=== PATIENT | female | born 1935 ===

== ENCOUNTER 2016-11-16 23:57 | Inpatient (IN) | payer MEDICARE ==
[2016-11-17] MEDS ORDERED: Ondansetron INJ* 2 MG/ML VIAL IV PRN (01:41)
[2016-11-17] MEDS: Acetaminophen TAB* 325 MG PO PRN ×5 (02:28→22:40)
[2016-11-17] MEDS: NS 0.9% 1000 ML* 1,000 ML IV SCH ×3 (02:28→22:40)
[2016-11-17 05:04] LABS: Hematocrit 39 % (35-47); Hemoglobin 12.9 g/dl (12.0-16.0); Mean Corpuscular HGB Conc 33 g/dl (31-36); Mean Corpuscular Hemoglobin 31 pg (27-31); Mean Corpuscular Volume 93 fL (80-97); Mean Platelet Volume 11 um3 (7.4-10.4); Red Cell Distribution Width 14 % (10.5-15); White Blood Count 9.6 10^3/ul (3.5-10.8)
[2016-11-17 05:10] LABS: Calcium 8.7 mg/dL (8.6-10.3); EGFR African American 88.8 (>60)
--- NOTE | 2016-11-17 07:55 | PN ---
Subjective Date of Service: 11/17/16 Objective Active Medications: Acetaminophen (Tylenol Tab*) 650 mg PO Q4H PRN Amlodipine Besylate (Norvasc Tab*) 5 mg PO BID JAMEE Aspirin (Ecotrin Ec Tab*) 81 mg PO QAM JAMEE Atorvastatin Calcium (Lipitor*) 10 mg PO DAILY JAM[facility] Carvedilol (Coreg Tab*) 12.5 mg PO BID JAMEE Sodium Chloride (Ns 0.9% 1000 Ml*) 1,000 mls @ 100 mls/hr IV PER RATE [facility] Losartan Potassium (Cozaar Tab*) 50 mg PO DAILY [facility] Morphine Sulfate (Morphine Inj (Syringe)*) 2 mg IV Q2H PRN Ondansetron HCl (Zofran Inj*) 4 mg IV Q6H PRN Vital Signs 11/16/16 11/17/16 11/17/16 23:57 00:08 02:58 Temperature 97.6 F 98.1 F Pulse Rate 79 85 Respiratory 14 14 16 Rate Blood Pressure 183/85 182/65 (mmHg) O2 Sat by Pulse 98 97 Oximetry Result Diagrams: 11/17/16 04:49 11/17/16 04:49 Assess/Plan/Problems-Billing Assessment: Ms. Rivas is an 81 yo female with a PMH of HTN and HLD who was admitted on 11/16 after a fall with a right hip fracture. - Patient Problems (1) Hip fracture Comment: - Management per ortho, patient NPO for anticipated surgery today. - Pain meds prn. - Patient is regularly able to obtain more than 4 mets of activity without chest pain or SOB. Her EKG shows a sinus rhythm with no evidence of ischemia. She is at low risk for her anticipated surgery based on the Revised Cardiac Risk Index. No further cardiac testing is indicated. She is medically optimized. (2) Hypertension Comment: - SBP 180s. - Suspect due to pain. - Continue analgesics and carvedilol, losartan and amlodipine. (3) Hyperlipidemia Comment: - Continue atorvastatin. (4) DVT prophylaxis Comment: - SCDs only in the immediate pre-operative procedure. (5) Full code status Status and Disposition: Inpatient. Anticipate need for rehab at time of discharge. PMRU consult placed.
--- NOTE | 2016-11-17 08:15 | RAD ---
HISTORY: CHF COMPARISONS: CT dated September 19, 2016 VIEWS:1: Single frontal portable view of the chest at 5:17 AM. The patient is obliqued to the left. FINDINGS: LINES AND TUBES: None. CARDIOMEDIASTINAL SILHOUETTE: The cardiomediastinal silhouette is normal for portable technique. PLEURA: The costophrenic angles are sharp. No pleural abnormalities are noted. LUNG PARENCHYMA: There is linear opacification of the left lung base that appears to correspond to pleuroparenchymal scarring visible on the previous CT examination. Accounting for differences in technique, this is stable. ABDOMEN: The upper abdomen is clear. There is no subphrenic gas. BONES AND SOFT TISSUES: No bone or soft tissue abnormalities are noted. IMPRESSION: NO ACTIVE CARDIOPULMONARY DISEASE.
[2016-11-17] MEDS: Carvedilol TAB* 25 MG PO SCH ×2 (08:38→20:08)
[2016-11-17] MEDS: Atorvastatin* 10 MG TAB PO SCH (08:39)
[2016-11-17] MEDS: amLODIPine TAB* 5 MG PO SCH ×2 (08:39→20:08)
[2016-11-17] MEDS ORDERED: Losartan TAB* 25 MG PO SCH (09:00)
[2016-11-17] MEDS ORDERED: Aspirin EC TAB* 325 MG PO SCH (09:00)
--- NOTE | 2016-11-17 09:40 | HP ---
CC: Dr. Carey, [facility]; Dr. Villegas, [place] ADMISSION HISTORY AND PHYSICAL: DATE OF ADMISSION: 11/17/16 CHIEF COMPLAINT: Right hip pain. HISTORY OF PRESENT ILLNESS: Ms. Rivas is an 81-year-old woman who was upright in her home this evening when she tripped over her feet and fell forward onto a coffee table. She struck her right hip and bumped her head a little on the right as well. There was no loss of consciousness, and she has no pain in her head at this time. She came to the ER at [facility] by ambulance and was assessed there by Ms. Dewey, nurse practitioner. She was found to have a right hip fracture as well as some pain in the right shoulder. She was unable to bear weight on the right hip. I was contacted to accept the patient in transfer from [facility] Emergency Department. She came to our service by direct admission. At baseline, the patient can climb stairs and get around her home without any shortness of breath or chest pain. She even went to a [employer] race 2 weeks ago, so she has a good performance status. PAST MEDICAL HISTORY: The patient has hypertension, hyperlipidemia. She had 1 episode of congestive heart failure in 2001, but nothing symptomatic since then. She has a history of colon cancer. PAST SURGICAL HISTORY: Colon cancer resection in 2012 with a hemicolectomy and followup with Dr. Tucker. She also had tubal ligation in 1970. MEDICATIONS: On admission are: 1. Amlodipine 5 mg p.o. b.i.d. 2. Aspirin 81 mg p.o. daily. 3. Carvedilol 12.5 mg p.o. b.i.d. 4. Furosemide 20 mg as needed p.r.n. edema. 5. Lovastatin 40 mg p.o. q.h.s. 6. She also takes losartan 1 tab daily, dose unknown. ALLERGIES: None. FAMILY HISTORY: Notable for her father who had diabetes. Father of heart disease in his 70s. Mother had hypertension, in her 70s also. 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 She is . She has 6 children. She never smoked. She drinks alcohol rarely. No recreational drugs. REVIEW OF SYSTEMS: The patient denies any fevers, weight loss, or anorexia. The patient denies any chest pain or palpitations. The patient denies any shortness of breath or cough. Remainder of the 14-point review of systems is negative other than mentioned in the HPI. PHYSICAL EXAMINATION GENERAL: She is in no acute distress. VITAL SIGNS: Temperature is 36.4, pulse 79, respirations 14, blood pressure is 183/85, oxygen saturation is 98%. HEENT: Head is normocephalic, atraumatic. Sclerae anicteric. Pupils are equally round and reactive to light and accommodation. Oropharynx is moist. No lesions. NECK: No JVD, no carotid bruit, no thyromegaly. LUNGS: Clear to auscultation and percussion bilaterally. HEART: Regular rate and rhythm with a 2/6 systolic murmur at the left upper sternal border without radiation. ABDOMEN: Soft, nontender, nondistended. Positive bowel sounds. No hepatosplenomegaly. EXTREMITIES: No peripheral edema. Dorsalis pedis pulses 1+ bilaterally. MUSCULOSKELETAL: The right hip is tender laterally and the right leg is externally rotated. NEUROLOGIC: Cranial nerves II through XII intact. Motor strength is grossly intact throughout. LABORATORY DATA: Sodium 140, potassium 3.7, chloride 105, bicarb 29, BUN 27, creatinine 1.2, glucose 114, calcium 9.0. White count 6.7, hemoglobin 12.8, hematocrit 39.2, and platelets 161. EKG is pending. Chest x-ray is pending. X-rays sent over from [facility] demonstrate right hip intertrochanteric fracture. ASSESSMENT AND PLAN: The patient admitted with mechanical fall and right hip fracture. She will be a good candidate for surgery and Dr. Villegas has been contacted through the emergency department at [facility] to see the patient today in consultation. The patient has a history of hypertension and we will restart her home medications and monitor. There is no unstable coronary syndrome and no unstable congestive heart failure at this time. I would advise to proceed with surgery without delay. She will have an EKG and chest x-ray this morning prior to surgery to complete pre-op evaluation. History of colon cancer. This appears to be in remission and does not affect surgical planning. Code status is full. Her healthcare proxies are her 2 daughters who are coming to see her later this morning. DVT prophylaxis will be with sequential compression devices prior to surgery and with Lovenox and Coumadin after surgery. [id number]/[facility] #: [id number] JANEEN
--- NOTE | 2016-11-17 11:28 | RAD ---
HISTORY: Preop planning, right hip fracture COMPARISONS: None VIEWS: 3, Frontal view of the pelvis with frontal and frog-leg views of the right hip FINDINGS: BONE DENSITY: There is diffuse osteopenia. BONES: There is an angulated intertrochanteric fracture of the right femur . JOINTS: There is mild to moderate osteoarthritis of the hips and SI joints ALIGNMENT: There is no dislocation. SOFT TISSUES: There is peripheral arterial calcification OTHER FINDINGS: Degenerative changes are noted of the spine IMPRESSION: 1. ANGULATED INTERTROCHANTERIC FRACTURE OF THE RIGHT FEMUR. 2. OSTEOPENIA. 3. OSTEOARTHRITIS. 4. PERIPHERAL ARTERIAL DISEASE.
--- NOTE | 2016-11-17 12:00 | CONS ---
ORTHOPEDIC CONSULT: DATE OF ADMISSION: 11/17/16 DATE OF CONSULT: 11/17/16 CHIEF COMPLAINT: Right hip pain. HISTORY OF PRESENT ILLNESS: This is an 81-year-old female who fell at her home early on 11/17/16. She tripped over her own feet and fell forward on to a coffee table striking her right hip and bumping her head. There was no loss of consciousness. She was transported to [facility] Emergency Department by ambulance where x-rays revealed a right hip fracture. The patient was denying any head pain or other signs of concussion. She was transferred to [facility] by direct admission and admitted to the hospitalist service. Dr. Villegas was consulted to evaluate her right hip. PAST MEDICAL HISTORY: 1. Hypertension. 2. Hyperlipidemia. 3. History of 1 episode of congestive heart failure in 2001, but has not had any symptoms since then. 4. History of colon cancer. PAST SURGICAL HISTORY: 1. Colon cancer resection in 2012 with a hemicolectomy. 2. Tubal ligation in 1970. CURRENT MEDICATIONS: 1. Amlodipine 5 mg p.o. b.i.d. 2. Aspirin 81 mg p.o. daily. 3. Carvedilol 12.5 mg p.o. b.i.d. 4. Furosemide 20 mg p.r.n. edema. 5. Lovastatin 40 mg q.h.s. 6. Losartan 1 tab daily, dosage unknown. ALLERGIES: No known drug allergies. FAMILY HISTORY: Diabetes, heart disease, and hypertension. SOCIAL HISTORY: The patient is retired. She has no history of tobacco use and no recreational drug use. She does drink alcohol or rare occasion. REVIEW OF SYSTEMS: General: The patient denies fevers, chills, or weight loss. Cephalic: The patient denies headache or dizziness. Respiratory: The patient denies shortness of breath or chronic cough. The remainder of the 14- point system is negative other than mentioned in the above HPI. PHYSICAL EXAM: General: Alert and oriented, no obvious distress. Vital Signs : Temperature 98.1 Fahrenheit/36.4 celsius, pulse rate 85, respiratory rate 16, blood pressure 182/65, and O2 sat is 97%. HEENT: Normocephalic, atraumatic. Pupils are equal, round, and reactive to light and accommodation. Extraocular movements are intact. Neck: Supple. No palpable lymph nodes. Throat is clear. Lungs: Clear to auscultation bilaterally. No wheezes, rales, or rhonchi. Heart: Regular, rate, and rhythm; S1, S2. There is a murmur noted with auscultation. Abdomen: Positive bowel sounds, soft and nontender. Extremities: No peripheral edema. Distal neurovascular status is intact. Musculoskeletal: On exam of the right hip there is no visible deformity, no ecchymosis. There is mild swelling visible and the right hip is tender laterally with the right leg externally rotated slightly. Neurologic: Cranial nerves II through XII are intact. The patient is alert and oriented x3. DIAGNOSTIC STUDIES/LAB DATA: Sodium 140, potassium 3.7, chloride 105, bicarb 29 , BUN 27, creatinine 1.2, glucose 114, calcium 9.0, white count 6.7, hemoglobin 12.8, hematocrit 39.2, and platelets 161. Initial x-rays from [facility] of the right hip showed displaced intertrochanteric fracture of the right hip. IMPRESSION: Right hip displaced intertrochanteric fracture. PLAN/RECOMMENDATIONS: This patient is scheduled to undergo an ORIF right hip by Dr. Villegas. She has been cleared by Cardiology to proceed with surgery. DREAD SOTO [id number]/[facility] #: [id number] MTDD
[2016-11-17 14:28] LABS: Urine Bacteria Absent (Absent); Urine Bilirubin Negative (Negative); Urine Glucose Negative (Negative); Urine Nitrite Negative (Negative)
[2016-11-17] MEDS: Morphine INJ* 2 MG/ML 1 ML SYRINGE IV PRN (14:41)
[2016-11-17] MEDS ORDERED: Buffered Lidocaine 0.9% SYRIN* 5 ML/SYR SYRINGE INTRADERM ONE (19:32)
[2016-11-18] MEDS: amLODIPine TAB* 5 MG PO SCH ×2 (07:31→21:03)
[2016-11-18] MEDS: Carvedilol TAB* 25 MG PO SCH ×2 (07:31→21:03)
[2016-11-18] MEDS: Atorvastatin* 10 MG TAB PO SCH (07:32)
[2016-11-18] MEDS: Morphine INJ* 2 MG/ML 1 ML SYRINGE IV PRN (07:32)
--- NOTE | 2016-11-18 07:48 | PN ---
Subjective Date of Service: 11/18/16 Interval History: Ms. Gonzalez denies right hip pain at the time of my examination and states that she is feeling well. She further denies chest pain, SOB, nausea, or abdominal pain. She is tolerating sips of coffee thus far. Objective Active Medications: Acetaminophen (Tylenol Tab*) 650 mg PO Q4H PRN Amlodipine Besylate (Norvasc Tab*) 5 mg PO BID JAMEE Atorvastatin Calcium (Lipitor*) 10 mg PO DAILY J[facility] Carvedilol (Coreg Tab*) 12.5 mg PO BID JAMEE Sodium Chloride (Ns 0.9% 1000 Ml*) 1,000 mls @ 100 mls/hr IV PER RATE J[facility] Lactated Ringer's (Lactated Ringers 1000 Ml Bag*) 1,000 mls @ 125 mls/hr IV PER RATE [facility] Morphine Sulfate (Morphine Inj (Syringe)*) 2 mg IV Q2H PRN Ondansetron HCl (Zofran Inj*) 4 mg IV Q6H PRN Vital Signs 11/17/16 11/17/16 11/17/16 07:57 08:10 11:38 Temperature 98.0 F 97.8 F Pulse Rate 77 76 Respiratory 13 11 Rate Blood Pressure 162/67 135/55 (mmHg) O2 Sat by Pulse 89 93 87 Oximetry 11/17/16 11/17/16 11/17/16 12:45 14:41 15:41 Temperature Pulse Rate 73 Respiratory 16 15 Rate Blood Pressure (mmHg) O2 Sat by Pulse 96 Oximetry 11/17/16 11/17/16 11/17/16 15:49 20:00 20:19 Temperature 99.0 F 99.0 F Pulse Rate 67 52 Respiratory 15 16 17 Rate Blood Pressure 152/56 154/67 (mmHg) O2 Sat by Pulse 96 96 Oximetry 11/17/16 11/18/16 11/18/16 23:26 03:47 07:32 Temperature 97.8 F 98.1 F Pulse Rate 74 61 Respiratory 14 16 18 Rate Blood Pressure 144/51 150/54 (mmHg) O2 Sat by Pulse 97 94 Oximetry 11/18/16 07:39 Temperature 100.7 F Pulse Rate 82 Respiratory 16 Rate Blood Pressure 167/75 (mmHg) O2 Sat by Pulse 94 Oximetry Oxygen Devices in Use Now: None Appearance: Female lying in bed in NAD Eyes: No Scleral Icterus Ears/Nose/Mouth/Throat: Mucous Membranes Moist Neck: Trachea Midline Respiratory: Symmetrical Chest Expansion and Respiratory Effort, Clear to Auscultation Cardiovascular: NL Sounds; No Murmurs; No JVD, No Edema Abdominal: NL Sounds; No Tenderness; No Distention Lymphatic: No Cervical Adenopathy Extremities: No Edema Skin: No Rash or Ulcers Neurological: Alert and Oriented x 3, NL Muscle Strength and Tone Nutrition: Taking PO's Result Diagrams: 11/17/16 04:49 11/17/16 04:49 Assess/Plan/Problems-Billing Assessment: Ms. Rivas is an 81 yo female with a PMH of HTN and HLD who was admitted on 11/16 after a fall with a right hip fracture. - Patient Problems (1) Hip fracture Comment: - POD # 0, Management per ortho. - Pain meds prn. - Monitor H/H. - PT/OT. (2) Hypertension Comment: - SBP 150-160s - Continue carvedilol, losartan and amlodipine. (3) Hyperlipidemia Comment: - Continue atorvastatin. (4) DVT prophylaxis Comment: - Lovenox per ortho. (5) Full code status Status and Disposition: Inpatient. Anticipate need for rehab at time of discharge. PMRU consult placed.
--- NOTE | 2016-11-18 07:49 | PN ---
Progress Note - Progress Note Date of Service: 11/18/16 SOAP: Subjective: Right hip pain. No headache. Patient had a mild headache yesterday, resolved with coffee. Optimized/cleared by Hospitalist service. Objective: NAD RLE: - short - externally rotated - NVID Selected Entries 11/18/16 07:39 Temperature 100.7 F Pulse Rate 82 Respiratory 16 Rate Blood Pressure 167/75 (mmHg) O2 Sat by Pulse 94 Oximetry Laboratory Tests 11/17/16 11/17/16 04:49 13:10 WBC 9.6 Hct 39 Plt Count 136 L Urine Nitrate Negative Ur Leukocyte Esterase Negative Urine WBC (Auto) Trace(0-5/hpf) Urine Bacteria Absent Assessment: R hip intertrochanteric fracture Plan: - to OR for ORIF c IMN - NPO, consented
[2016-11-18] MEDS ORDERED: ceFAZolin 2 GM PREMIX (*) 50 ML IVPB ONE (07:56)
[2016-11-18] MEDS ORDERED: Bupivacaine 0.5% W/EPI SDV* 30 ML VIAL ONE (08:11)
[2016-11-18] MEDS ORDERED: fentaNYL* 50 MCG/ML 2 ML VIAL (100 MCG VIAL) ONE (08:37)
[2016-11-18] MEDS ORDERED: Midazolam* 1 MG/ML 5 ML VIAL (5 MG) ONE (08:37)
[2016-11-18] MEDS ORDERED: Morphine PF AMP (0.5MG/ML)* 5 MG/10 ML AMP ONE (08:38)
[2016-11-18] MEDS ORDERED: Ondansetron INJ* 2 MG/ML VIAL IV PRN (09:42)
[2016-11-18] MEDS ORDERED: Naloxone* 0.4 MG/ML 1 ML VIAL IV PRN (09:42)
[2016-11-18] MEDS ORDERED: DiMENhydriNATE IV* 50 MG/ML VIAL IV PUSH PRN (09:42)
[2016-11-18] MEDS ORDERED: Nalbuphine* 20 MG/ML 1 ML VIAL IV PRN (09:42)
[2016-11-18] MEDS ORDERED: fentaNYL* 50 MCG/ML 2 ML VIAL (100 MCG VIAL) IV PRN (09:45)
--- NOTE | 2016-11-18 11:05 | RAD ---
INDICATION: Right hip fracture COMPARISON: November 17, 2016 FINDINGS: 2.7 minutes of fluoroscopy were provided for the orthopedics department. Fluoroscopic spot imaging of the right hip were obtained for operative control and show right femoral nailing . CPT II Codes: 6045F (fluoro time doc)
--- NOTE | 2016-11-18 14:18 | PN ---
Subjective Date of Service: 11/18/16 Interval History: Ms. Rivas denies right hip pain at the time of my examination and states that she is feeling well. She denies chest pain, SOB, nausea, or abdominal pain. She is tolerating sips of cough. Objective Active Medications: Acetaminophen (Tylenol Tab*) 650 mg PO Q4H PRN PRN Reason: FEVER/HEADACHE Last Admin: 11/17/16 22:40 Dose: 650 mg Amlodipine Besylate (Norvasc Tab*) 5 mg PO BID [facility] Last Admin: 11/18/16 07:31 Dose: 5 mg Atorvastatin Calcium (Lipitor*) 10 mg PO DAILY [facility] PRN Reason: Protocol Last Admin: 11/18/16 07:32 Dose: 10 mg Carvedilol (Coreg Tab*) 12.5 mg PO BID [facility] Last Admin: 11/18/16 07:31 Dose: 12.5 mg Dimenhydrinate (Dramamine Iv*) 25 mg IV PUSH Q6H PRN PRN Reason: Nausea/Vomiting Stop: 11/19/16 01:00 Enoxaparin Sodium (Lovenox(*)) 40 mg SUBCUT DAILY [facility] Sodium Chloride (Ns 0.9% 1000 Ml*) 1,000 mls @ 100 mls/hr IV PER RATE [facility] Last Admin: 11/17/16 22:40 Dose: 100 mls/hr Lactated Ringer's (Lactated Ringers 1000 Ml Bag*) 1,000 mls @ 125 mls/hr IV PER RATE [facility] Last Admin: 11/18/16 13:27 Dose: 125 mls/hr Cefazolin Sodium 1 gm/ Sodium (Chloride) 50 mls @ 200 mls/hr IVPB Q8H [facility] Stop: 11/19/16 08:14 Morphine Sulfate (Morphine Inj (Syringe)*) 2 mg IV Q3H PRN PRN Reason: PAIN Nalbuphine HCl (Nubain*) 5 mg IV Q6H PRN PRN Reason: pruritis Stop: 11/19/16 01:00 Naloxone HCl (Narcan*) 0.08 mg IV Q2M PRN PRN Reason: respiratory depression Stop: 11/19/16 01:00 Ondansetron HCl (Zofran Inj*) 4 mg IV Q6H PRN PRN Reason: NAUSEA Ondansetron HCl (Zofran Inj*) 4 mg IV Q6H PRN PRN Reason: Nausea/Vomiting Stop: 11/19/16 01:00 Oxycodone/Acetaminophen (Percocet 5/325 Tab*) 1 tab PO Q4H PRN PRN Reason: PAIN Oxycodone/Acetaminophen (Percocet 5/325 Tab*) 2 tab PO Q4H PRN PRN Reason: PAIN Vital Signs 11/17/16 11/17/16 11/17/16 14:41 15:41 15:49 Temperature 99.0 F Pulse Rate 67 Respiratory 16 15 15 Rate Blood Pressure 152/56 (mmHg) O2 Sat by Pulse 96 Oximetry 11/17/16 11/17/16 11/17/16 20:00 20:19 23:26 Temperature 99.0 F 97.8 F Pulse Rate 52 74 Respiratory 16 17 14 Rate Blood Pressure 154/67 144/51 (mmHg) O2 Sat by Pulse 96 97 Oximetry 11/18/16 11/18/16 11/18/16 03:47 07:32 07:39 Temperature 98.1 F 100.7 F Pulse Rate 61 82 Respiratory 16 18 16 Rate Blood Pressure 150/54 167/75 (mmHg) O2 Sat by Pulse 94 94 Oximetry 11/18/16 11/18/16 11/18/16 10:36 10:40 10:45 Temperature 97.9 F Pulse Rate 63 60 56 Respiratory 16 20 20 Rate Blood Pressure 129/73 130/43 134/40 (mmHg) O2 Sat by Pulse 94 94 99 Oximetry 11/18/16 11/18/16 11/18/16 11:00 11:15 11:30 Temperature 96.8 F Pulse Rate 61 60 54 Respiratory 16 24 18 Rate Blood Pressure 110/43 104/43 117/45 (mmHg) O2 Sat by Pulse 99 97 98 Oximetry 11/18/16 11/18/16 11/18/16 11:45 12:00 12:15 Temperature 98.1 F Pulse Rate 54 64 54 Respiratory 22 22 20 Rate Blood Pressure 97/40 128/47 122/46 (mmHg) O2 Sat by Pulse 98 98 97 Oximetry 11/18/16 11/18/16 12:47 13:52 Temperature 98.1 F 97.3 F Pulse Rate 66 Respiratory 16 14 Rate Blood Pressure 133/45 (mmHg) O2 Sat by Pulse 98 Oximetry Result Diagrams: 11/17/16 04:49 11/17/16 04:49 Assess/Plan/Problems-Billing Assessment: Ms. Rivas is an 81 yo female with a PMH of HTN and HLD who was admitted on 11/16 after a fall with a right hip fracture. - Patient Problems (1) Hip fracture Comment: - Management per ortho, surgery planned for today. - Pain meds prn. - Patient is regularly able to obtain more than 4 METS of activity without chest pain or SOB. Her EKG shows a SR with no evidence of ischemia. She is at low risk for her anticipated surgery based on the Revised Cardiac Risk Index. No further cardiac testing is indicated. She is medically optimized. (2) Hypertension Comment: - SBP 150-160s - Continue carvedilol, losartan and amlodipine. (3) Hyperlipidemia Comment: - Continue atorvastatin. (4) DVT prophylaxis Comment: - SCDs only in the immediate pre-operative procedure. (5) Full code status Status and Disposition: Inpatient. Anticipate need for rehab at time of discharge. PMRU consult placed.
[2016-11-18] MEDS: ceFAZolin 1 GM* Q8H x 3 doses IVPB SCH ×2 (18:24)
[2016-11-19] MEDS: ceFAZolin 1 GM* Q8H x 3 doses IVPB SCH ×4 (00:20→07:41)
[2016-11-19] MEDS ORDERED: Morphine INJ* 2 MG/ML 1 ML SYRINGE IV PRN (03:00)
--- NOTE | 2016-11-19 03:10 | OP ---
DATE OF OPERATION: 11/18/16 - ROOM #350 DATE OF : 37 SURGEON: Kane Villegas MD SOFT SUGAR SUPERVISOR: DREAD Brambila. A physician mail handler assistant was required throughout the length of the case for positioning and retraction. ANESTHESIOLOGIST: Lalito Bourne MD ANESTHESIA: Spinal anesthesia, Duramorph. PRE-OP DIAGNOSIS: Right hip intertrochanteric fracture, displaced. POST-OP DIAGNOSIS: Right hip intertrochanteric fracture, displaced. OPERATIVE PROCEDURE: Right hip open reduction internal fixation, intertrochanteric hip fracture, displaced. ANTIBIOSIS: 2 g Ancef IV. IV FLUIDS: 950 cc crystalloid. COMPLICATIONS: None. ESTIMATED BLOOD LOSS: 200 cc. SPECIMEN: None. IMPLANTS: [place] gamma nail, short nail, 11 mm x 180 mm at 125 degrees. Lag screw was 10.5 mm x 100 mm in length. Locking screw was 5 mm x 32.5 mm in length. INDICATIONS FOR PROCEDURE: The patient is an 81-year-old woman who sustained a mechanical fall at home on 11/17/16, one day prior to surgery. She tripped over her own feet. One foot stepped on the other. She then fell forward, striking her right hip against the floor, and she said, possibly grazing the right side of her head against the table. No loss of consciousness. The patient was taken to the [facility] Emergency Department by ambulance where x-rays demonstrated a right hip fracture. As the patient denied any head pain or any other signs of concussion, a CT scan was not performed of the head. The patient was transferred to [facility] by direct admission to the hospitalist service there and I was consulted by telephone from the [facility] Emergency Department. The patient lives next door to a son. The patient has 6 children, most of whom live locally. Evaluation of imaging demonstrated an intertrochanteric right hip fracture, very close to the base of the femoral neck. Films from [facility] demonstrated split through the lesser trochanter, although films at [facility] do not demonstrate that as well. Discussed with Radiology as well just to confirm the intertrochanteric nature of the fracture. I spoke with the patient and her family, including many of her children, about operative treatment of displaced intertrochanteric hip fractures. I moraima a diagram of the injury and intramedullary nail fixation for treatment. I reviewed benefits, risks, and potential complications, benefits being reduced pain, decreased time until functional ambulation, improved likelihood of functional ambulation, fewer medical comorbidities from remaining in bed. Risks and complications including bleeding, infection, nerve and blood vessel injury, hardware cutout, hip pain, were discussed. Need for anticoagulation was discussed. DESCRIPTION OF PROCEDURE: A preoperative written consent was obtained. In the patient's floor room, the patient's operative extremity was marked by myself. The patient consented herself, but her children also listened to the discussion of benefits, risks, and potential complications. The patient was taken to the operating room and a spinal anesthetic was placed by Dr. Bourne. The patient was next positioned on the fracture table supine. The fracture table was fully assembled with perineal post and the right lower extremity in the traction position. Contralateral left hip was flexed and externally rotated. A mini time-out was performed and C-arm imaging was brought in. Traction and small amount of internal rotation to the right lower extremity obtained adequate reduction of a fracture that preoperatively had been significantly shortened at the fracture site. I noticed on the lateral images that there may have been a split in the femoral neck itself. While some of the femoral neck appeared not to be angulated, there appeared to be some of the femoral neck that was interangulated. I manipulated the lower extremity in an attempt to improve this. I tried various lateral x-ray angles to obtain the best shot from shaft to neck to head with best alignment. I rotated the lower extremity as well to improve the alignment. I obtained a fracture alignment that I was happy with and I decided on 10 degrees from the level of pure horizontal as my lateral imaging angle for the case. The patient's right hip was prepped and draped. Surgical time-out was performed. A stab incision with a 10 blade was made 8 cm proximal to the proximal most tip of the greater trochanter in line with the shaft of the femur. Through the stab hole in the skin, I introduced a pin. I placed this pin into the proximal most tip of the greater trochanter, pointing down the femoral shaft. This pin was in excellent position in both the AP and lateral planes. I, therefore, next extended my incision distally, part of the way towards the level of the greater trochanter. I also incised the abductor fascia along that pin that had been left in place. I could then palpate nicely the greater trochanter through this wound, which was more proximal to it. I briefly considered placing a pin more anterior, though when I did this, the pin was too anterior and so I stayed with my original pin. I placed a starting reamer and a tissue protector over the pin and I reamed the proximal femur. I then placed a nail, dimensions noted above. With the guide attached to the nail, I then placed a stab incision for the triple cannula for the lag screw. I split the iliotibial band and vastus to get down to proximal femur. I then placed a pin with the pin tip close to the center-center location of the femoral head subchondrally. I adjusted this pin once to obtain good position in both the coronal and sagittal planes. I then drilled over this pin and placed a screw 100 mm in length. I made it long enough so that this would definitely extend lateral to the lateral cortex for full locking control. I then obtained some light compression with the lag screw, as this seemed to improve the reduction slightly in both the AP and lateral planes. I then placed a distal locking screw, first drilling through a guide and then placing a screw, 32.5 mm in length that was bicortical. I then placed a set countersinker balance screw hole the nail from superior. I clearly engaged the lag screw. Guide was removed. Final x-rays, AP and lateral images of the entirety of the nail and 2 screws demonstrated good position of hardware. The reduction was adequate, although it appears in the AP view that there is a slight amount of diastasis about the compression side, medial side of the fracture, this lag screw was slightly compressed, so I do not believe that there was in fact any diastasis in that location. Irrigation. Closure of the hip abductor fascia was performed with 3 figure-of- eight stitches using Vicryl 0 suture. Closure of the subcutaneous tissues was performed with buried simple stitches using Vicryl 2.0 suture. Closure of the skin was with gustavo. It should be noted that prior to the placement of the lag screw, I placed a derotational pin, more superiorly in the femoral head and neck. I did this secondary to the location of this intertrochanteric fracture very close to the base of the femoral neck. Therefore, I was concerned about rotational malreduction with passage of my lag screw. In order to place anti-rotational pin, I placed a stab skin incision, just anterior and proximal to the skin incision for my lag screw. I placed a pin parallel with the track of the lag screw, but more proximal and anterior. I placed a pin into the head and neck of the femur. I kept that in place while I placed my lag screw. I removed it as soon as the lag screw had been placed. When the incisions x4 were closed with gustavo, the skin was then cleaned. Xeroform, 4x4's, ABD's, foam tape. The patient was returned to the supine position and transferred to a stretcher for return to PACU. DISPOSITION: The patient will be readmitted to the hospitalist service. Anesthesia requested that we wait 16 hours to start narcotics. The Duramorph should last approximately that long. The patient will be anticoagulated with Lovenox 40 mg subcu daily x4 weeks, starting postoperative day #1 in the morning. The patient would do physical therapy and will be weightbearing as tolerated. The patient should follow up with me in clinic approximately 14 days postoperative for x-rays and removal of her gustavo. The patient's family has my cell phone number should they have any questions or problems. [id number]/[facility] #: [id number] MTDD
[2016-11-19] MEDS: oxyCODONE/Acetamin 5/325 MG* TAB PO PRN ×4 (05:50→19:17)
[2016-11-19] MEDS: Carvedilol TAB* 25 MG PO SCH ×2 (07:43→21:18)
[2016-11-19] MEDS: Atorvastatin* 10 MG TAB PO SCH (07:44)
[2016-11-19] MEDS: Enoxaparin(*) 40 MG/0.4 ML SYR SUBCUT SCH (07:44)
[2016-11-19] MEDS: amLODIPine TAB* 5 MG PO SCH ×2 (07:44→21:18)
--- NOTE | 2016-11-19 10:33 | PN ---
Subjective Date of Service: 11/19/16 Interval History: Ms. Rivas is feeling well today and has no complaints. She had some pain with therapy today but is pain free now. She denies chest pain, SOB, nausea, or abdominal pain. Objective Active Medications: Acetaminophen (Tylenol Tab*) 650 mg PO Q4H PRN Amlodipine Besylate (Norvasc Tab*) 5 mg PO BID [facility] Atorvastatin Calcium (Lipitor*) 10 mg PO DAILY [facility] Carvedilol (Coreg Tab*) 12.5 mg PO BID [facility] Enoxaparin Sodium (Lovenox(*)) 40 mg SUBCUT DAILY [facility] Sodium Chloride (Ns 0.9% 1000 Ml*) 1,000 mls @ 100 mls/hr IV PER RATE [facility] Lactated Ringer's (Lactated Ringers 1000 Ml Bag*) 1,000 mls @ 125 mls/hr IV PER RATE [facility] Morphine Sulfate (Morphine Inj (Syringe)*) 2 mg IV Q3H PRN Ondansetron HCl (Zofran Inj*) 4 mg IV Q6H PRN Oxycodone/Acetaminophen (Percocet 5/325 Tab*) 1 tab PO Q4H PRN Oxycodone/Acetaminophen (Percocet 5/325 Tab*) 2 tab PO Q4H PRN Vital Signs 11/18/16 11/18/16 11/18/16 10:36 10:40 10:45 Temperature 97.9 F Pulse Rate 63 60 56 Respiratory 16 20 20 Rate Blood Pressure 129/73 130/43 134/40 (mmHg) O2 Sat by Pulse 94 94 99 Oximetry 11/18/16 11/18/16 11/18/16 11:00 11:15 11:30 Temperature 96.8 F Pulse Rate 61 60 54 Respiratory 16 24 18 Rate Blood Pressure 110/43 104/43 117/45 (mmHg) O2 Sat by Pulse 99 97 98 Oximetry 11/18/16 11/18/16 11/18/16 11:45 12:00 12:15 Temperature 98.1 F Pulse Rate 54 64 54 Respiratory 22 22 20 Rate Blood Pressure 97/40 128/47 122/46 (mmHg) O2 Sat by Pulse 98 98 97 Oximetry 11/18/16 11/18/16 11/18/16 12:47 13:30 13:42 Temperature 98.1 F Pulse Rate 66 64 Respiratory 16 14 Rate Blood Pressure 133/45 142/60 (mmHg) O2 Sat by Pulse 98 97 Oximetry 11/18/16 11/18/16 11/18/16 13:52 14:45 16:46 Temperature 97.3 F 98.4 F 97.6 F Pulse Rate 68 69 Respiratory 14 10 15 Rate Blood Pressure 108/63 152/63 (mmHg) O2 Sat by Pulse 96 96 Oximetry 11/18/16 11/18/16 11/18/16 16:47 18:40 19:05 Temperature 97.6 F Pulse Rate 75 Respiratory 16 18 Rate Blood Pressure 145/54 (mmHg) O2 Sat by Pulse 96 99 99 Oximetry 11/18/16 11/18/16 11/18/16 20:00 20:23 22:37 Temperature Pulse Rate Respiratory 18 18 Rate Blood Pressure (mmHg) O2 Sat by Pulse 99 Oximetry 11/18/16 11/18/16 11/19/16 23:14 23:33 03:48 Temperature 98.7 F 98.5 F Pulse Rate 80 85 Respiratory 18 16 18 Rate Blood Pressure 114/42 124/51 (mmHg) O2 Sat by Pulse 99 98 Oximetry 11/19/16 11/19/16 11/19/16 05:50 07:09 07:50 Temperature 98.7 F Pulse Rate 80 Respiratory 16 16 16 Rate Blood Pressure 123/46 (mmHg) O2 Sat by Pulse 94 Oximetry Oxygen Devices in Use Now: None Appearance: Female lying in bed in NAD Eyes: No Scleral Icterus Ears/Nose/Mouth/Throat: Mucous Membranes Moist Neck: Trachea Midline Respiratory: Symmetrical Chest Expansion and Respiratory Effort, Clear to Auscultation Cardiovascular: NL Sounds; No Murmurs; No JVD, No Edema Abdominal: NL Sounds; No Tenderness; No Distention Lymphatic: No Cervical Adenopathy Extremities: No Edema Skin: No Rash or Ulcers Neurological: Alert and Oriented x 3, NL Muscle Strength and Tone Nutrition: Taking PO's Result Diagrams: 11/17/16 04:49 11/17/16 04:49 Assess/Plan/Problems-Billing Assessment: Ms. Rivas is an 81 yo female with a PMH of HTN and HLD who was admitted on 11/16 after a fall with a right hip fracture. - Patient Problems (1) Hip fracture Comment: - POD # 1, Management per ortho. - Pain meds prn. - Monitor H/H. - PT/OT. (2) Hypertension Comment: - SBP 150-160s - Continue carvedilol and amlodipine. (3) Hyperlipidemia Comment: - Continue atorvastatin. (4) DVT prophylaxis Comment: - Lovenox per ortho. (5) Full code status Status and Disposition: Inpatient. Anticipate need for rehab at time of discharge. PMRU consult placed. Patient is stable and progressing well with therapy. Hospital Medicine will sign off for now but please do not hesitate to call with any further questions or concerns.
[2016-11-19 10:43] LABS: Hematocrit 34 % (35-47); Hemoglobin 10.8 g/dl (12.0-16.0)
--- NOTE | 2016-11-19 13:13 | PN ---
Progress Note - Progress Note Date of Service: 11/19/16 SOAP: Subjective: POD #1 Right hip ORIF with gamma nail. States that she is having some pain today but controlled with meds. Denies CP/SOB, calf pain, f/c. Objective: Vitals: Temp Pulse Resp BP Pulse Ox 97.9 F 73 16 112/68 92 11/19/16 11:48 11/19/16 11:48 11/19/16 12:38 11/19/16 11:48 11/19/16 11:48 Gen: A&Ox3, NAD at rest sitting in chair Right Hip: Dressing C/D/I, thigh soft, NT. +f/e at knee, ankle and MTPs. N/V intact Labs: Laboratory Results - last 24 hr 11/19/16 10:33 Hgb 10.8 L Hct 34 L Assessment: POD #1 Right hip ORIF Plan: PT/OT cont WBAT PMRU referral per medicine Lovenox for DVT ppx
[2016-11-20] MEDS: oxyCODONE/Acetamin 5/325 MG* TAB PO PRN ×5 (04:42→23:51)
[2016-11-20 06:28] LABS: Hematocrit 30 % (35-47); Hemoglobin 9.8 g/dl (12.0-16.0)
--- NOTE | 2016-11-20 08:57 | PN ---
Progress Note - Progress Note Date of Service: 11/20/16 SOAP: Subjective: Pt. OOB to chair, pain in right hip minimal and controlled well with PO medications Objective: Vital Signs Temp Pulse Resp BP Pulse Ox 97.7 F 76 14 138/49 98 11/20/16 03:51 11/20/16 03:51 11/20/16 06:28 11/20/16 03:51 11/20/16 04:10 Laboratory Last Values WBC 9.6 10^3/ul (3.5-10.8) 11/17/16 04:49 RBC 4.20 10^6/ul (4.0-5.4) 11/17/16 04:49 Hgb 9.8 g/dl (12.0-16.0) L 11/20/16 06:18 Hct 30 % (35-47) L 11/20/16 06:18 MCV 93 fL (80-97) 11/17/16 04:49 MCH 31 pg (27-31) 11/17/16 04:49 MCHC 33 g/dl (31-36) 11/17/16 04:49 RDW 14 % (10.5-15) 11/17/16 04:49 Plt Count 136 10^3/ul (150-450) L 11/17/16 04:49 MPV 11 um3 (7.4-10.4) H 11/17/16 04:49 Neut % (Auto) 75.1 % (38-83) 11/17/16 04:49 Lymph % (Auto) 12.1 % (25-47) L 11/17/16 04:49 [place] % (Auto) 10.6 % (1-9) H 11/17/16 04:49 Eos % (Auto) 0.6 % (0-6) 11/17/16 04:49 Baso % (Auto) 1.6 % (0-2) 11/17/16 04:49 Absolute Neuts (auto) 7.2 10^3/ul (1.5-7.7) 11/17/16 04:49 Absolute Lymphs (auto) 1.2 10^3/ul (1.0-4.8) 11/17/16 04:49 Absolute Monos (auto) 1.0 10^3/ul (0-0.8) H 11/17/16 04:49 Absolute Eos (auto) 0.1 10^3/ul (0-0.6) 11/17/16 04:49 Absolute Basos (auto) 0.2 10^3/ul (0-0.2) 11/17/16 04:49 Absolute Nucleated RBC 0 10^3/ul 11/17/16 04:49 Nucleated RBC % 0 11/17/16 04:49 INR (Anticoag Therapy) 0.94 (0.89-1.11) 11/17/16 04:48 APTT 30.1 seconds (26.0-36.3) 11/17/16 11:35 Sodium 136 mmol/L (133-145) 11/17/16 04:49 Potassium 4.0 mmol/L (3.5-5.0) 11/17/16 04:49 Chloride 105 mmol/L (101-111) 11/17/16 04:49 Carbon Dioxide 26 mmol/L (22-32) 11/17/16 04:49 Anion Gap 5 mmol/L (2-11) 11/17/16 04:49 BUN 20 mg/dL (6-24) 11/17/16 04:49 Creatinine 0.80 mg/dL (0.51-0.95) 11/17/16 04:49 Est GFR ( Amer) 88.8 (>60) 11/17/16 04:49 Est GFR (Non-Af Amer) 69.0 (>60) 11/17/16 04:49 BUN/Creatinine Ratio 25.0 (8-20) H 11/17/16 04:49 Glucose 141 mg/dL (70-100) H 11/17/16 04:49 Calcium 8.7 mg/dL (8.6-10.3) 11/17/16 04:49 Urine Color Yellow 11/17/16 13:10 Urine Appearance Clear 11/17/16 13:10 Urine pH 5.0 (5-9) 11/17/16 13:10 Ur Specific [place] 1.014 (1.010-1.030) 11/17/16 13:10 Urine Protein Negative (Negative) 11/17/16 13:10 Urine Ketones Negative (Negative) 11/17/16 13:10 Urine Blood 1+ (Negative) H 11/17/16 13:10 Urine Nitrate Negative (Negative) 11/17/16 13:10 Urine Bilirubin Negative (Negative) 11/17/16 13:10 Urine Urobilinogen Negative (Negative) 11/17/16 13:10 Ur Leukocyte Esterase Negative (Negative) 11/17/16 13:10 Urine WBC (Auto) Trace(0-5/hpf) (Absent) 11/17/16 13:10 Urine RBC (Auto) 3+(>10/hpf) (Absent) H 11/17/16 13:10 Urine Bacteria Absent (Absent) 11/17/16 13:10 Urine Glucose Negative (Negative) 11/17/16 13:10 Blood Type O Positive 11/17/16 04:48 Antibody Screen Negative 11/17/16 04:48 incision: c/d; dressing changed PE: NVI Assessment: S/P right hip IT fracture ORIF; POD #2 Plan: 1) Continue PT/OT- WBAT 2) Lovenox/SCD's for DVT prophylaxis 3) awaiting inpatient rehab placement
[2016-11-20] MEDS: Enoxaparin(*) 40 MG/0.4 ML SYR SUBCUT SCH (09:36)
[2016-11-20] MEDS: Atorvastatin* 10 MG TAB PO SCH (09:36)
[2016-11-20] MEDS: amLODIPine TAB* 5 MG PO SCH ×2 (09:38→21:28)
[2016-11-20] MEDS: Carvedilol TAB* 25 MG PO SCH ×2 (09:38→21:28)
--- NOTE | 2016-11-20 11:23 | PN ---
Subjective Date of Service: 11/20/16 Interval History: Ms. Rivas denies any complaint today. She reports her hip pain is well controlled and that she has been up and ambulated to the bathroom. She specifically denies chest pain, SOB, nausea, or abdominal pain. Objective Active Medications: Acetaminophen (Tylenol Tab*) 650 mg PO Q4H PRN Amlodipine Besylate (Norvasc Tab*) 5 mg PO BID [facility] Atorvastatin Calcium (Lipitor*) 10 mg PO DAILY [facility] Carvedilol (Coreg Tab*) 12.5 mg PO BID [facility] Enoxaparin Sodium (Lovenox(*)) 40 mg SUBCUT DAILY [facility] Lactated Ringer's (Lactated Ringers 1000 Ml Bag*) 1,000 mls @ 125 mls/hr IV PER RATE [facility] Morphine Sulfate (Morphine Inj (Syringe)*) 2 mg IV Q3H PRN Ondansetron HCl (Zofran Inj*) 4 mg IV Q6H PRN Oxycodone/Acetaminophen (Percocet 5/325 Tab*) 1 tab PO Q4H PRN Oxycodone/Acetaminophen (Percocet 5/325 Tab*) 2 tab PO Q4H PRN Vital Signs 11/19/16 11/19/16 11/19/16 11:48 12:26 12:38 Temperature 97.9 F Pulse Rate 73 Respiratory 16 16 16 Rate Blood Pressure 112/68 (mmHg) O2 Sat by Pulse 92 Oximetry 11/19/16 11/19/16 11/19/16 13:38 14:52 15:35 Temperature 98.4 F Pulse Rate 74 Respiratory 16 16 20 Rate Blood Pressure 114/49 (mmHg) O2 Sat by Pulse 91 Oximetry 11/19/16 11/19/16 11/19/16 16:52 17:48 19:17 Temperature Pulse Rate Respiratory 16 16 Rate Blood Pressure (mmHg) O2 Sat by Pulse 91 Oximetry 11/19/16 11/19/16 11/19/16 19:52 21:10 21:17 Temperature 98.0 F Pulse Rate 73 Respiratory 16 18 18 Rate Blood Pressure 120/41 (mmHg) O2 Sat by Pulse 95 Oximetry 11/19/16 11/20/16 11/20/16 23:52 03:51 04:10 Temperature 97.5 F 97.7 F Pulse Rate 83 76 Respiratory 16 16 Rate Blood Pressure 113/45 138/49 (mmHg) O2 Sat by Pulse 90 87 98 Oximetry 11/20/16 11/20/16 11/20/16 04:42 06:28 07:08 Temperature 98.1 F Pulse Rate 77 Respiratory 18 14 15 Rate Blood Pressure 123/48 (mmHg) O2 Sat by Pulse 94 Oximetry 11/20/16 09:37 Temperature Pulse Rate Respiratory 16 Rate Blood Pressure (mmHg) O2 Sat by Pulse Oximetry Oxygen Devices in Use Now: None Appearance: Female lying in bed in NAD Eyes: No Scleral Icterus Ears/Nose/Mouth/Throat: Mucous Membranes Moist Neck: Trachea Midline Respiratory: Symmetrical Chest Expansion and Respiratory Effort, Clear to Auscultation Cardiovascular: NL Sounds; No Murmurs; No JVD, No Edema Abdominal: NL Sounds; No Tenderness; No Distention Lymphatic: No Cervical Adenopathy Extremities: No Edema Skin: No Rash or Ulcers, - - R hip dressing CDI Neurological: Alert and Oriented x 3, NL Muscle Strength and Tone Nutrition: Taking PO's Result Diagrams: 11/20/16 06:18 11/17/16 04:49 Assess/Plan/Problems-Billing Assessment: Ms. Rivas is an 81 yo female with a PMH of HTN and HLD who was admitted on 11/16 after a fall with a right hip fracture. - Patient Problems (1) Hip fracture Comment: - POD # 2, Management per ortho. - Pain meds prn. - Monitor H/H. - PT/OT. (2) Hypertension Comment: - SBP 110-120s - Continue carvedilol and amlodipine. (3) Hyperlipidemia Comment: - Continue atorvastatin. (4) DVT prophylaxis Comment: - Lovenox per ortho. (5) Full code status Status and Disposition: Inpatient. Anticipate need for rehab at time of discharge. PMRU consult placed.
[2016-11-21] MEDS: oxyCODONE/Acetamin 5/325 MG* TAB PO PRN (05:59)
[2016-11-21] MEDS: Atorvastatin* 10 MG TAB PO SCH (08:48)
[2016-11-21] MEDS: Carvedilol TAB* 25 MG PO SCH (08:49)
[2016-11-21] MEDS: amLODIPine TAB* 5 MG PO SCH (08:49)
[2016-11-21] MEDS: Enoxaparin(*) 40 MG/0.4 ML SYR SUBCUT SCH (08:51)
[2016-11-21 09:49] LABS: Hematocrit 30 % (35-47); Hemoglobin 9.9 g/dl (12.0-16.0); Mean Corpuscular HGB Conc 34 g/dl (31-36); Mean Corpuscular Hemoglobin 31 pg (27-31); Mean Corpuscular Volume 93 fL (80-97); Mean Platelet Volume 11 um3 (7.4-10.4); Red Blood Count 3.18 10^6/ul (4.0-5.4); Red Cell Distribution Width 14 % (10.5-15); White Blood Count 7.2 10^3/ul (3.5-10.8)
[2016-11-21 10:00] LABS: BUN/Creatinine Ratio 14.7 (8-20); Calcium 8.6 mg/dL (8.6-10.3); EGFR African American 95.6 (>60); EGFR Non-African American 74.4 (>60); Potassium 3.7 mmol/L (3.5-5.0)
[2016-11-21 10:32] LABS: Urine Bacteria 1+ (Absent); Urine Bilirubin Negative (Negative); Urine Glucose Negative (Negative); Urine Nitrite Negative (Negative)
--- NOTE | 2016-11-21 12:12 | PN ---
Progress Note - Progress Note Date of Service: 11/21/16 SOAP: Subjective: Less right hip pain. Objective: NAD RLE: - dressing c/d/i, changed by PA this morning - NVID Selected Entries 11/21/16 07:15 Temperature 98.0 F Pulse Rate 76 Respiratory 15 Rate Blood Pressure 139/54 (mmHg) O2 Sat by Pulse 90 Oximetry Laboratory Tests 11/19/16 11/20/16 11/21/16 10:33 06:18 09:30 Hct 34 L 30 L 30 L Urine Nitrate Ur Leukocyte Esterase Ur Squamous Epith Cells Urine Bacteria 11/21/16 09:48 Hct Urine Nitrate Negative Ur Leukocyte Esterase Trace H Ur Squamous Epith Cells Present H Urine Bacteria 1+ H Assessment: POD 3 R hip intertroch fx ORIF c IMN Plan: - Lovenox - Pain control - PT, WBAT, OOB - Dispo planning, to PMRU expected - Will d/w Hospitalist whether UA represents infection or contaminant
[2016-11-21 12:13] VITALS: BP 124/58
--- NOTE | 2016-11-22 07:48 | DS ---
CC: Dr. Antoine Carey; Dr. Villegas* DISCHARGE SUMMARY: DATE OF ADMISSION: 11/17/16 DATE OF DISCHARGE: 11/21/16 PRIMARY CARE PROVIDER: Dr. Antoine Carey. ORTHOPEDIC SURGEON: Dr. Kane Villegas. DISCHARGING PROVIDER: DREAD Salazar SUPERVISING PHYSICIAN: Dr. Laureano Bradley * (DICTATED BY DREAD SALAZAR) PRIMARY DISCHARGE DIAGNOSES: 1. Right hip fracture, status post fixation, 11/18/16. 2. Postoperative delirium. 3. Urinary tract infection. SECONDARY DISCHARGE DIAGNOSES: 1. Hypertension. 2. Hyperlipidemia. DISCHARGE MEDICATIONS: 1. Amlodipine 5 mg p.o. b.i.d. 2. Aspirin 81 mg p.o. daily. 3. Carvedilol 12.5 mg p.o. daily. 4. Lovenox 40 mg subcu daily. 5. Lasix 20 mg p.o. daily. 6. Lovastatin 40 mg p.o. daily. 7. Bactrim DS one tablet p.o. twice daily x5 days. 8. Percocet 5/325 one tablet p.o. q.4 hours as needed for pain. Medication changes: 1. Bactrim x5 days. 2. P.r.n. Percocet. HOSPITAL IMAGIN. Chest x-ray shows no acute process. 2. X-ray of the hip and pelvis shows an angulated intertrochanteric fracture of the right femur with associated osteopenia and osteoarthritis as well as evidence of peripheral arterial disease. HOSPITAL COURSE: This is an 81-year-old female with a history of hypertension and hyperlipidemia, who sustained a fall at home when she tripped and fell on to her coffee table. She struck her right hip and then also hit her head, but there was no loss of consciousness. She was initially evaluated in the emergency department at [facility] where she was noted to have an angulated hip fracture and was subsequently transferred to [facility] via direct admission for further evaluation and fixation of her fracture. The patient underwent fixation, 11/18/16, with Dr. Villegas. The patient's postoperative course was complicated by mild occasional visual hallucinations. The patient seems to maintain awareness of what was real and what was not. These hallucinations were not typical for her at baseline. She was quite functional and independent prior to her admission. Urinalysis was completed, which demonstrated trace leuk esterase and 1+ bacteria, but no significant leukocytosis or fever. Her hallucination thought to potentially represent delirium, perhaps due to narcotics medication but also potentially complicated by urinary tract infection, and she was subsequently empirically started on Bactrim for UTI with cultures still pending at that time of discharge. DISPOSITION AND FOLLOWUP PLAN: The patient is being discharged to her acute inpatient rehab unit. As mentioned above, Bactrim has been started empirically for suspected UTI with culture pending at the time of discharge. Suspect that her narcotics may also be contributing to this recent hallucination and recommend limiting their use as much as possible while still maintaining appropriate pain control. The patient requires followup with Dr. Villegas, orthopedic surgeon, in 14 days from surgery and will require followup with her primary care provider following discharge from rehab. DREAD SALAZAR [id number]/[facility] #: [id number] MTDAshwin
== END 2016-11-21 12:20 | DRG 481 ==
LOC: SSU 23:57
PROVIDERS: ADMIT Internal Medicine; ATTEND Internal Medicine
PROC: 0QS606Z Reposition Right Upper Femur with Intramedullary Internal Fixation Device, Open Approach (ICD-10-PCS; principal; 2016-11-18 08:00)
DX: S72.141A Displaced intertrochanteric fracture of right femur, initial encounter for closed fracture (principal); F05 Delirium due to known physiological condition; I11.0 Hypertensive heart disease with heart failure; I50.9 Heart failure, unspecified; N39.0 Urinary tract infection, site not specified; W01.190A Fall on same level from slipping, tripping and stumbling with subsequent striking against furniture, initial encounter; E78.5 Hyperlipidemia, unspecified; D47.3 Essential (hemorrhagic) thrombocythemia; R51 Headache; M85.88 Other specified disorders of bone density and structure, other site; M16.11 Unilateral primary osteoarthritis, right hip; I73.9 Peripheral vascular disease, unspecified; Y92.009 Unspecified place in unspecified non-institutional (private) residence as the place of occurrence of the external cause; Z85.038 Personal history of other malignant neoplasm of large intestine; Z90.49 Acquired absence of other specified parts of digestive tract; Z98.51 Tubal ligation status; Z83.3 Family history of diabetes mellitus; Z82.49 Family history of ischemic heart disease and other diseases of the circulatory system; Z79.82 Long term (current) use of aspirin; Z79.01 Long term (current) use of anticoagulants
CPT/HCPCS: 36415; 71010; 76000; 80048; 81003; 81015; 85014; 85018; 85025; 85610; 85730; 86850; 86900; 86901; 87086; 93005; A9270-GY; C1713; C1776; J0690; J1650; J2250; J2270; J3010

== ENCOUNTER 2016-11-21 09:40 | Inpatient (IN) | payer MEDICARE ==
[2016-11-21] MEDS ORDERED: Bisacodyl SUPP* 10 MG SUPP PR PRN (13:44)
[2016-11-21] MEDS ORDERED: Magnesium Hydroxide LIQ* 30 ML UDC PO PRN (13:44)
[2016-11-21] MEDS ORDERED: oxyCODONE/Acetamin 5/325 MG* TAB PO PRN (13:51)
[2016-11-21] MEDS: oxyCODONE/Acetamin 5/325 MG* TAB PO PRN (18:13)
[2016-11-21] MEDS: Carvedilol TAB* 25 MG PO SCH (20:58)
[2016-11-21] MEDS: Docusate CAP* 100 MG PO SCH (21:02)
[2016-11-21] MEDS: Senna TAB PO SCH (21:02)
[2016-11-21] MEDS: amLODIPine TAB* 5 MG PO SCH (21:02)
--- NOTE | 2016-11-22 01:28 | HP ---
CC: Kane Villegas MD * ADMISSION HISTORY AND PHYSICAL: DATE OF ADMISSION: 11/21/16 REASON FOR ADMISSION: Right hip fracture. HISTORY OF PRESENT ILLNESS: Monique Rivas is an 81-year-old female. Apparently , she was moving from one room to another on 11/16/16. She tripped over her own feet as she stepped one foot on top of the other while wearing flip flops. She fell forward and landed on her right hip. She was unable to get up, but was able to access her cell phone. She called her son who came over and found her on the floor. He helped her up to a chair and then called 911. She was brought to [facility]. She had x-rays taken showing a right hip fracture. The patient was transferred to [facility]. She was admitted to the hospitalist service and seen by Dr. Kane Villegas, orthopedic surgeon. She was taken to the operating room on 11/18/16 and underwent an open reduction internal fixation of her right hip fracture. She had a gamma nail fixation. The patient postoperatively was stable. She had some postop anemia, but did not require a transfusion. She did not have a bowel movement since her surgery. She was felt to have physical therapy and occupational therapy needs. She is now being admitted for inpatient rehab, so that she might return to independent living. PAST MEDICAL HISTORY: Significant for: 1. Hypertension. 2. She also has a history of colon cancer and underwent a resection in 2012 with a hemicolectomy. 3. She has a history of hyperlipidemia. CURRENT MEDICATIONS: Include: 1. Lipitor. 2. Norvasc. 3. Lovenox for DVT prophylaxis. 4. Percocet. 5. Coreg. 6. Prior to admission it looks like she was also on losartan, which has not yet been restarted. ALLERGIES: No known drug allergies. SOCIAL HISTORY: She is a nonsmoker. Nondrinker. She lives in a duplex next to her son and [id number]. She does not need to do stairs. REVIEW OF SYSTEMS: No current shortness of breath or chest pain. PHYSICAL EXAMINATION VITAL SIGNS: The patient's temperature is 97.8, blood pressure is 135/57, pulse 81, and respirations 18. HEENT: Her extraocular movements are intact. Tongue is midline. NECK: Supple. LUNGS: Sound clear to auscultation bilaterally. HEART: Heart sounds are regular. S1 and S2 audible. ABDOMEN: Soft and nontender. EXTREMITIES: Her right hip has a wound, which is clean and dry. Peripheral pulses are intact. NEUROLOGIC: Sensation is intact. She is awake, alert, oriented. Muscle strength is 5/5 in both upper and lower extremities except the right lower extremity which is 3/5 secondary to pain. FUNCTIONAL EXAM: She transfers with minimal amount of assistance. ASSESSMENT: Right hip fracture. PLAN: Integrate her into a comprehensive therapeutic rehab program with the following goals: 1. Physical Therapy will work with the patient. They are going to work on functional transfer training, ambulation training with a walker. 2. Occupational Therapy will see the patient, work on her activities of daily living including toileting and toilet transfers. 3. Lovenox for DVT prophylaxis. 4. Adequate analgesia. 5. Her bowels will be regulated. 6. teleservices representative will be closely involved to make sure that any services and equipment the patient requires are in place prior to discharge. 7. Orthopedic followup as indicated. We will do postop films at [address] Villegas's recommendations. 8. Advance directives: The patient is full code. 9. Home with appropriate services. ESTIMATED LENGTH OF STAY: 10 days. [id number]/[facility] #: [id number] JANEEN
[2016-11-22] MEDS: Docusate CAP* 100 MG PO SCH ×2 (08:24→20:19)
[2016-11-22] MEDS: Carvedilol TAB* 25 MG PO SCH ×2 (08:24→20:20)
[2016-11-22] MEDS: amLODIPine TAB* 5 MG PO SCH ×2 (08:24→20:20)
[2016-11-22] MEDS: oxyCODONE/Acetamin 5/325 MG* TAB PO PRN ×3 (08:25→21:07)
[2016-11-22] MEDS: Enoxaparin(*) 40 MG/0.4 ML SYR SUBCUT SCH (08:25)
[2016-11-22] MEDS: Atorvastatin* 10 MG TAB PO SCH (17:16)
[2016-11-22] MEDS: Senna TAB PO SCH (20:19)
[2016-11-23] MEDS: Enoxaparin(*) 40 MG/0.4 ML SYR SUBCUT SCH (08:44)
[2016-11-23] MEDS: Carvedilol TAB* 25 MG PO SCH (08:45)
[2016-11-23] MEDS: amLODIPine TAB* 5 MG PO SCH (08:46)
[2016-11-23] MEDS: oxyCODONE/Acetamin 5/325 MG* TAB PO PRN ×2 (08:46→13:56)
[2016-11-23] MEDS: Docusate CAP* 100 MG PO SCH ×2 (08:48→19:55)
[2016-11-23 08:58] LABS: Add Diff/Slide Review? Slide Review Added; Comments Flag Yes; Hematocrit 34 % (35-47); Hemoglobin 11.2 g/dl (12.0-16.0); Mean Corpuscular HGB Conc 33 g/dl (31-36); Mean Corpuscular Hemoglobin 30 pg (27-31); Mean Corpuscular Volume 92 fL (80-97); Mean Platelet Volume 9 um3 (7.4-10.4); Red Cell Distribution Width 14 % (10.5-15)
[2016-11-23 09:16] LABS: Albumin 3.3 g/dL (3.2-5.2); BUN/Creatinine Ratio 15.8 (8-20); Calcium 9.3 mg/dL (8.6-10.3); EGFR African American 94.2 (>60); EGFR Non-African American 73.2 (>60); Globulin 3.2 g/dL (2-4); Potassium 3.6 mmol/L (3.5-5.0); Total Bilirubin 1.6 mg/dL (0.2-1.0); Total Protein 6.5 g/dL (6.4-8.9)
--- NOTE | 2016-11-23 12:42 | PMRUTEAM ---
PMRU: Goals Current Status: Nursing: Current Status Skin Deviations [Right Hip] Incision Skin Deviations [Coccyx] Abrasion Skin Deviation Description [ incision with gustavo Right Hip] Skin Deviation Description [ healing abrasion Coccyx] Physical Therapy: Current Status Bed Mobility Assistance min assist Transfer Moblility Assistance Supervision,Contact Guard Assist Transfer/Bed Mobility Rolling Walker Recommended Devices Ambulation Assistance Supervision Ambulation Assistive Devices Rolling Walker Number of Feet Patient 80' Ambulated Stairs Assistance contact guard Stairs Recommended Devices Two Rails Number of Stairs 5 Occupational Therapy: Current Status Upper Body Dressing Supervision Lower Body Dressing Total Assist Bathing Min Assist Toileting Mod Assist Toilet Transfer Contact Guard Assist Eating Independent Social Work: Current Status Discharge Plan return home with home care svs and family support Potential for Family Training pt's family is involved and supportive Anticipated Discharge Home Destination Discharge With home care svs and family support Goals: Physical Therapy: Updated Goals Modified independent bed mobility. Modified independent transfers and ambulation with rolling walker 150ft. 5 stairs with 1 railing. Occupational Therapy: Initial Goals Goals to be Completed in (Days 5-10 ) Upper Body Bathing Routine Independent Lower Body Bathing Routine Modified Independent with Upper Body Dressing Routine Independent Lower Body Dressing Routine Modified Independent with Toilet Hygeine and Clothing Modified Independent with Management Routine Toilet Transfer Routine Modified Independent with Tub Transfer Routine Modified Independent with Functional Transfers for ADL Modified Independent with Grooming Routine Independent Feeding Routine Independent Nutrition: Goals Intervention Goals 1. adequate post-op po intake to support healing and maintenance of stable wt 2. pt will tolerate diet post-op progression without GI distress 3. regulated bowel pattern will be achieved and maintained; no c/o constipation Social Work: Goals Discharge Plan return home with home care svs and family support Potential for Family Training pt's family is involved and supportive Anticipated Discharge Home Destination Discharge With home care svs and family support Care Plan: Care Plan ADL's - Improve/Maintain Start: 11/22/16 01:39 Freq: QSHIFT Status: Active Target: Activity Type Activity Date Activity User E-Sign Co-Sign Detail Recorded Client Recorded Date Recorded By Document 11/22/16 12:34 [id number] 11/22/16 12:35 [id number] 11/22/16 12:34 PMRU Outcome: ADL's/ADL Transfers Orders/Interventions Occupational Therapy Evaluation & Treatment Communication Tool in Patient Room Device Yes Address Deficits Secondary To: Right hip ORIF Patient to receive OT 5x/wk for 60-120 Therex min/day Self Care Management Group Therapy UE/LE ADL's with Assist Yes: Momo ADL Transfers with Assist Yes: Momo Toileting: Transfers,Clothing Management Yes: Momo ,Hygeine w/Assist Light Kitchen/Laundry w/Assist Yes: Momo Progression Toward Outcome/Goals Progressing Outcome/Goals Met Pt participated well in OT evaluation. Communication-Improve/Maintain Start: 11/21/16 21:59 Freq: QSHIFT Status: Active Target: Activity Type Activity Date Activity User E-Sign Co-Sign Detail Recorded Client Recorded Date Recorded By Document 11/22/16 23:58 [id number] 11/22/16 23:59 [id number] 11/22/16 23:58 PMRU Outcome: Communication/Cognitive Status Outcome/Goals Use Comm Tools/ Devices Makes Needs Known Effectively Progression Toward Outcomes/Goals Progressing Discharge Planning - Improve/Maintain Start: 11/22/16 01:39 Freq: QSHIFT Status: Active Target: Activity Type Activity Date Activity User E-Sign Co-Sign Detail Recorded Client Recorded Date Recorded By Document 11/22/16 23:58 [id number] 11/22/16 23:59 [id number] 11/22/16 23:58 PMRU Outcome: Discharge Planning Update Patient Family No Outcome/Goals Demonstrates Understanding of Discharge Plan Progression Toward Outcome/Goals Progressing Education-Improve/Maintain Start: 11/22/16 01:39 Freq: QSHIFT Status: Active Target: Activity Type Activity Date Activity User E-Sign Co-Sign Detail Recorded Client Recorded Date Recorded By Document 11/23/16 11:41 [id number] 11/23/16 11:42 [id number] 11/23/16 11:41 PMRU Outcome: Education Outcome/Goals Demonstrate/ Verbalize Understanding of Written Discharge Instructions Encourage Questions Other Progression Toward Outcome/Goals Progressing /GI-Improve/Maintain Start: 11/21/16 21:59 Freq: QSHIFT Status: Active Target: Activity Type Activity Date Activity User E-Sign Co-Sign Detail Recorded Client Recorded Date Recorded By Document 11/23/16 11:41 [id number] 11/23/16 11:42 [id number] 11/23/16 11:41 PMRU Outcome: Genitourinary/ Gastrointestinal Genitourinary- Outcome/Goals Maintain/ Achieve Urinary Continence Maintain/ Achieve Adequate Urinary Output Remain Free of Hospital- Acquired UTI Gastrointestinal-Outcome/Goals Maintain/ Achieve Bowel Regularity in Accordance with Pt's Baseline Prevent Constipation Progression Toward Outcome/Goals - Progressing Progression Toward Outcome/Goals - GI Progressing Mobility- Improve/Maintain Start: 11/21/16 13:14 Freq: QSHIFT Status: Active Target: Activity Type Activity Date Activity User E-Sign Co-Sign Detail Recorded Client Recorded Date Recorded By Document 11/22/16 12:12 [id number] 11/22/16 12:12 [id number] 11/22/16 12:12 PMRU Outcome: Mobility Physical Therapy Evaluation and Yes Treatment Activity OOB with Assistance Yes WBAT Yes Device Yes Assistance Yes Patient to be seen 5x/wk for 60-120 min/ Therex day for: Mobility Training Gait Training Balance Outcome/Goals Maintain/ Achieve Baseline Mobility Status Improve Mobility Status Demonstrates Proper Use of Assistive Devices Free from Complications of Immobility Progression Toward Outcome/Goals Progressing Bed Mobility Yes: Independent Transfers Yes: Modified independent with RW Gait x ft Yes: Modified independent 150 ' with RW Up/Down Stairs Yes: Independent 5 steps 1 rail/ straight cane With HEP Yes: Independent Pain/Comfort- Improve/Maintain Start: 11/21/16 21:59 Freq: QSHIFT Status: Active Target: Activity Type Activity Date Activity User E-Sign Co-Sign Detail Recorded Client Recorded Date Recorded By Document 11/23/16 11:41 [id number] 11/23/16 11:42 [id number] 11/23/16 11:41 PMRU Outcome: Pain/Comfort Outcome/Goals Demonstrates Knowledge and Use of Available Comfort Measures Achieves Acceptable Comfort/Pain Level as Determined by Patient/Condit Maintain Comfort Level Allowing Patient to Fully Participate in Rehab Progression Toward Outcome/Goals Progressing Outcome/Goals Met Comment pt stated she had a little pain but did not want any medication or other pain interventions. Safety- Improve/Maintain Start: 11/21/16 21:59 Freq: QSHIFT Status: Active Target: Activity Type Activity Date Activity User E-Sign Co-Sign Detail Recorded Client Recorded Date Recorded By Document 11/23/16 11:56 [id number] 11/23/16 11:56 [id number] 11/23/16 11:56 PMRU Outcome: Safety Outcome/Goals Remain Free of Injury or Harm Cooperates with Safety Measures for Least Restrictive Environment Prevent Falls/ Injury Progression Toward Outcome/Goals Progressing Outcome/Goals Met Comment PA in place Skin- Improve/Maintain Start: 11/22/16 01:39 Freq: QSHIFT Status: Active Target: Activity Type Activity Date Activity User E-Sign Co-Sign Detail Recorded Client Recorded Date Recorded By Document 11/23/16 11:56 [id number] 11/23/16 11:56 [id number] 11/23/16 11:56 PMRU Outcome: Skin Skin Risk Level Medium Skin Orders Dressing Change Air Mattress Turn/Position q2hr While in Bed Outcome/Goals Maintain/ Improve Skin Intergrity Surgical Incisions Healing Progression Toward Outcome/Goals Progressing Medicine Note: Length of Stay: [1 week] Anticipated Discharge Destination: Home Tentative Discharge Date: [11/30/16] Discharged to: [home]
[2016-11-23] MEDS: Atorvastatin* 10 MG TAB PO SCH (18:15)
[2016-11-23] MEDS: Carvedilol TAB* 6.25 MG PO SCH (19:54)
[2016-11-23] MEDS: Losartan TAB* 25 MG PO SCH (19:54)
[2016-11-23] MEDS: Senna TAB PO SCH (19:55)
[2016-11-24] MEDS: Cyanocobalamin TAB* 500 MCG PO SCH (09:30)
[2016-11-24] MEDS: Docusate CAP* 100 MG PO SCH ×2 (09:30→20:07)
[2016-11-24] MEDS: Cholecalciferol TAB* 1000 UNITS PO SCH (09:30)
[2016-11-24] MEDS: Carvedilol TAB* 6.25 MG PO SCH ×2 (09:31→20:06)
[2016-11-24] MEDS: Enoxaparin(*) 40 MG/0.4 ML SYR SUBCUT SCH (09:32)
[2016-11-24] MEDS: oxyCODONE/Acetamin 5/325 MG* TAB PO PRN ×2 (11:22→19:18)
[2016-11-24] MEDS: Atorvastatin* 10 MG TAB PO SCH (17:03)
[2016-11-24] MEDS: Losartan TAB* 25 MG PO SCH (20:06)
[2016-11-24] MEDS: Senna TAB PO SCH (20:07)
[2016-11-25] MEDS: Docusate CAP* 100 MG PO SCH ×2 (07:49→19:49)
[2016-11-25] MEDS: Acetaminophen TAB* 325 MG PO PRN (07:49)
[2016-11-25] MEDS: Cholecalciferol TAB* 1000 UNITS PO SCH (07:49)
[2016-11-25] MEDS: Cyanocobalamin TAB* 500 MCG PO SCH (07:50)
[2016-11-25] MEDS: Carvedilol TAB* 6.25 MG PO SCH ×2 (07:50→19:48)
[2016-11-25] MEDS: Enoxaparin(*) 40 MG/0.4 ML SYR SUBCUT SCH (07:50)
[2016-11-25] MEDS ORDERED: Losartan TAB* 25 MG PO SCH (09:00)
[2016-11-25] MEDS: Losartan TAB* 25 MG PO SCH ×2 (09:42→19:47)
[2016-11-25] MEDS: Atorvastatin* 10 MG TAB PO SCH (17:14)
[2016-11-25] MEDS: oxyCODONE/Acetamin 5/325 MG* TAB PO PRN (19:48)
[2016-11-25] MEDS: Senna TAB PO SCH (19:49)
[2016-11-26 05:58] LABS: BUN/Creatinine Ratio 22.2 (8-20); Calcium 9.2 mg/dL (8.6-10.3); EGFR African American 87.5 (>60); Globulin 3.1 g/dL (2-4); Potassium 4.7 mmol/L (3.5-5.0); Total Bilirubin 1.3 mg/dL (0.2-1.0); Total Protein 6.1 g/dL (6.4-8.9)
[2016-11-26] MEDS: Carvedilol TAB* 6.25 MG PO SCH ×2 (08:21→20:52)
[2016-11-26] MEDS: Losartan TAB* 25 MG PO SCH ×2 (08:21→20:52)
[2016-11-26] MEDS: Cyanocobalamin TAB* 500 MCG PO SCH (08:21)
[2016-11-26] MEDS: Cholecalciferol TAB* 1000 UNITS PO SCH (08:21)
[2016-11-26] MEDS: Docusate CAP* 100 MG PO SCH ×2 (08:21→20:55)
[2016-11-26] MEDS: Enoxaparin(*) 40 MG/0.4 ML SYR SUBCUT SCH (08:22)
[2016-11-26] MEDS: oxyCODONE/Acetamin 5/325 MG* TAB PO PRN ×2 (11:24→20:53)
[2016-11-26] MEDS: Atorvastatin* 10 MG TAB PO SCH (17:23)
[2016-11-26] MEDS: Senna TAB PO SCH (20:55)
[2016-11-27] MEDS: oxyCODONE/Acetamin 5/325 MG* TAB PO PRN (09:06)
[2016-11-27] MEDS: Cyanocobalamin TAB* 500 MCG PO SCH (09:07)
[2016-11-27] MEDS: Losartan TAB* 25 MG PO SCH ×2 (09:07→20:27)
[2016-11-27] MEDS: Cholecalciferol TAB* 1000 UNITS PO SCH (09:07)
[2016-11-27] MEDS: Docusate CAP* 100 MG PO SCH ×2 (09:07→20:26)
[2016-11-27] MEDS: Carvedilol TAB* 6.25 MG PO SCH ×2 (09:07→21:12)
[2016-11-27] MEDS: Enoxaparin(*) 40 MG/0.4 ML SYR SUBCUT SCH (09:08)
--- NOTE | 2016-11-27 12:41 | PMRUTEAM ---
PMRU: Goals Current Status: Nursing: Current Status Skin Deviations [Right Thigh] Blister Skin Deviations [Right Hip] Incision Skin Deviations [Coccyx] Other Skin Deviation Description [ appears to be a tape blister, 2x2 and tegaderm Right Thigh] applied Skin Deviation Description [ healing Right Hip] Skin Deviation Description [ redness lotion in place Coccyx] Bladder Current Status continent Bowel Current Status continent Nutrition Current Status adequate Medication Current Status 1 percocet for pain Physical Therapy: Current Status Bed Mobility Assistance Supervision Transfer Moblility Assistance Supervision Transfer/Bed Mobility Rolling Walker Recommended Devices Ambulation Assistance Supervision Ambulation Assistive Devices Rolling Walker Number of Feet Patient 150' Ambulated Stairs Assistance Supervision Stairs Recommended Devices Two Rails Number of Stairs 5 Occupational Therapy: Current Status Upper Body Dressing Independent Lower Body Dressing Ind with Adaptive Equip Lower Body Dressing Progress Uses AE Bathing Ind with Adaptive Equip Toileting Ind with Adaptive Equip,Supervision Toileting Progress Distant S/mod I Toilet Transfer Ind with Adaptive Equip,Supervision Toilet Transfer Progress Distant S/mod I Shower Transfer Supervision Shower Transfer Progress S yesterday 11/26 Eating Independent Rec Therapy: Current Status Summary of Assessment and RT assessment complete, pt. is aware of RT Clinical Impression services and is engaged in leisure visits. Pt. expressed excitement towards her d/c. Treatment Goals Pt. will engage in leisure activities while on the unit. Treatment Plan Provide RT services and encourage involvement. Social Work: Current Status Discharge Plan return home with home care svs and family support Potential for Family Training pt's family is involved and supportive Anticipated Discharge Home Destination Discharge With [facility] and family support Nutrition: Current Status Monitoring regular diet generally well-accepted; usually eating 75-100% of meals. Skin is intact. Daily BMs thru 11/25; bowel regimen in place. Appears to be meeting goals as outlined below. Goals: Physical Therapy: Updated Goals Transfer/Bed Mobility Rolling Walker Recommended Devices Occupational Therapy: Initial Goals Goals to be Completed in (Days 5-10 ) Upper Body Bathing Routine Independent Lower Body Bathing Routine Modified Independent with Upper Body Dressing Routine Independent Lower Body Dressing Routine Modified Independent with Toilet Hygeine and Clothing Modified Independent with Management Routine Toilet Transfer Routine Modified Independent with Tub Transfer Routine Modified Independent with Functional Transfers for ADL Modified Independent with Grooming Routine Independent Feeding Routine Independent Nutrition: Goals Intervention Goals 1. adequate post-op po intake to support healing and maintenance of stable wt 2. pt will tolerate diet post-op progression without GI distress 3. regulated bowel pattern will be achieved and maintained; no c/o constipation Social Work: Goals Discharge Plan return home with home care svs and family support Potential for Family Training pt's family is involved and supportive Anticipated Discharge Home Destination Discharge With [facility] and family support Care Plan: Care Plan ADL's - Improve/Maintain Start: 11/22/16 01:39 Freq: DAILY Status: Active Target: Activity Type Activity Date Activity User E-Sign Co-Sign Detail Recorded Client Recorded Date Recorded By Document 11/24/16 10:29 [id number] 11/24/16 10:29 [id number] 11/24/16 10:29 PMRU Outcome: ADL's/ADL Transfers Orders/Interventions Occupational Therapy Evaluation & Treatment Communication Tool in Patient Room Device Yes Address Deficits Secondary To: Right hip ORIF Patient to receive OT 5x/wk for 60-120 Therex min/day Self Care Management Group Therapy UE/LE ADL's with Assist Yes: Momo ADL Transfers with Assist Yes: Momo Toileting: Transfers,Clothing Management Yes: Momo ,Hygeine w/Assist Light Kitchen/Laundry w/Assist Yes: Momo Progression Toward Outcome/Goals Progressing Outcome/Goals Met Pt participated well, standing limited 2* c/o dizziness. Communication-Improve/Maintain Start: 11/21/16 21:59 Freq: DAILY Status: Active Target: Activity Type Activity Date Activity User E-Sign Co-Sign Detail Recorded Client Recorded Date Recorded By Document 11/26/16 09:05 [id number] 11/26/16 09:05 [id number] 11/26/16 09:05 PMRU Outcome: Communication/Cognitive Status Outcome/Goals Use Comm Tools/ Devices Makes Needs Known Effectively Progression Toward Outcomes/Goals Progressing Discharge Planning - Improve/Maintain Start: 11/22/16 01:39 Freq: DAILY Status: Active Target: Activity Type Activity Date Activity User E-Sign Co-Sign Detail Recorded Client Recorded Date Recorded By Document 11/27/16 09:00 [id number] 11/27/16 09:53 [id number] 11/27/16 09:00 PMRU Outcome: Discharge Planning Update Patient Family No Outcome/Goals Demonstrates Understanding of Discharge Plan Progression Toward Outcome/Goals Progressing Education-Improve/Maintain Start: 11/22/16 01:39 Freq: DAILY Status: Active Target: Activity Type Activity Date Activity User E-Sign Co-Sign Detail Recorded Client Recorded Date Recorded By Document 11/27/16 08:00 [id number] 11/27/16 09:53 [id number] 11/27/16 08:00 PMRU Outcome: Education Outcome/Goals Demonstrate/ Verbalize Understanding of Written Discharge Instructions Encourage Questions Other Progression Toward Outcome/Goals Progressing /GI-Improve/Maintain Start: 11/21/16 21:59 Freq: DAILY Status: Complete Target: Activity Type Activity Date Activity User E-Sign Co-Sign Detail Recorded Client Recorded Date Recorded By Document 11/25/16 20:00 [id number] 11/25/16 23:20 [id number] 11/25/16 20:00 PMRU Outcome: Genitourinary/ Gastrointestinal Genitourinary- Outcome/Goals Maintain/ Achieve Urinary Continence Maintain/ Achieve Adequate Urinary Output Remain Free of Hospital- Acquired UTI Gastrointestinal-Outcome/Goals Maintain/ Achieve Bowel Regularity in Accordance with Pt's Baseline Prevent Constipation Genitourinary- Outcome/Goals Met Maintain/ Achieve Urinary Continence Maintain/ Achieve Adequate Urinary Output Gastrointestinal-Outcome/Goals Met Maintain/ Achieve Bowel Regularity in Accordance with Pt's Baseline Remain Free of Emesis Mobility- Improve/Maintain Start: 11/21/16 13:14 Freq: DAILY Status: Active Target: Activity Type Activity Date Activity User E-Sign Co-Sign Detail Recorded Client Recorded Date Recorded By Document 11/22/16 12:12 [id number] 11/22/16 12:12 [id number] 11/22/16 12:12 PMRU Outcome: Mobility Physical Therapy Evaluation and Yes Treatment Activity OOB with Assistance Yes WBAT Yes Device Yes Assistance Yes Patient to be seen 5x/wk for 60-120 min/ Therex day for: Mobility Training Gait Training Balance Outcome/Goals Maintain/ Achieve Baseline Mobility Status Improve Mobility Status Demonstrates Proper Use of Assistive Devices Free from Complications of Immobility Progression Toward Outcome/Goals Progressing Bed Mobility Yes: Independent Transfers Yes: Modified independent with RW Gait x ft Yes: Modified independent 150 ' with RW Up/Down Stairs Yes: Independent 5 steps 1 rail/ straight cane With HEP Yes: Independent Pain/Comfort- Improve/Maintain Start: 11/21/16 21:59 Freq: DAILY Status: Complete Target: Activity Type Activity Date Activity User E-Sign Co-Sign Detail Recorded Client Recorded Date Recorded By Document 11/23/16 20:00 [id number] 11/23/16 22:47 [id number] 11/23/16 20:00 PMRU Outcome: Pain/Comfort Outcome/Goals Demonstrates Knowledge and Use of Available Comfort Measures Achieves Acceptable Comfort/Pain Level as Determined by Patient/Condit Maintain Comfort Level Allowing Patient to Fully Participate in Rehab Outcome/Goals Met Demonstrates Knowledge and Use of Available Comfort Measures Achieves Acceptable Comfort/Pain Level as Determined by Patient/Condit Maintain Comfort Level Allowing Patient to Fully Participate in Rehab Safety- Improve/Maintain Start: 11/21/16 21:59 Freq: DAILY Status: Active Target: Activity Type Activity Date Activity User E-Sign Co-Sign Detail Recorded Client Recorded Date Recorded By Document 11/27/16 08:00 [id number] 11/27/16 09:53 [id number] 11/27/16 08:00 PMRU Outcome: Safety Outcome/Goals Remain Free of Injury or Harm Cooperates with Safety Measures for Least Restrictive Environment Prevent Falls/ Injury Progression Toward Outcome/Goals Progressing Outcome/Goals Met Comment PA in place Skin- Improve/Maintain Start: 11/22/16 01:39 Freq: DAILY Status: Complete Target: Activity Type Activity Date Activity User E-Sign Co-Sign Detail Recorded Client Recorded Date Recorded By Document 11/25/16 20:00 [id number] 11/25/16 23:20 [id number] 11/25/16 20:00 PMRU Outcome: Skin Skin Risk Level Medium Skin Orders Dressing Change Air Mattress Turn/Position q2hr While in Bed Outcome/Goals Maintain/ Improve Skin Intergrity Surgical Incisions Healing Outcome/Goals Met Maintain/ Improve Skin Intergrity Free from Decubitus Maintain/ Improve Wound Status Medicine Note: Length of Stay: 1 day Anticipated Discharge Destination: Home Tentative Discharge Date: 11/28/16 Discharged to: Home
[2016-11-27] MEDS: Atorvastatin* 10 MG TAB PO SCH (17:23)
[2016-11-27] MEDS: Senna TAB PO SCH (20:26)
[2016-11-28 07:00] VITALS: BP 134/51
[2016-11-28] MEDS: Cyanocobalamin TAB* 500 MCG PO SCH (07:57)
[2016-11-28] MEDS: Cholecalciferol TAB* 1000 UNITS PO SCH (07:57)
[2016-11-28] MEDS: Losartan TAB* 25 MG PO SCH (07:57)
[2016-11-28] MEDS: Enoxaparin(*) 40 MG/0.4 ML SYR SUBCUT SCH (07:57)
[2016-11-28] MEDS: Carvedilol TAB* 6.25 MG PO SCH (07:57)
[2016-11-28] MEDS: Docusate CAP* 100 MG PO SCH ×2 (07:58)
[2016-11-28] MEDS: Acetaminophen TAB* 325 MG PO PRN (10:34)
--- NOTE | 2016-11-29 07:38 | DS ---
CC: Dr. Antoine Carey; Dr. Kane Villegas * DISCHARGE SUMMARY: DATE OF ADMISSION: 11/21/16 DATE OF DISCHARGE: 11/28/16 DISCHARGE DIAGNOSES: 1. Right hip fracture. 2. Hypertension. 3. History of colon cancer. 4. Hyperlipidemia. 5. Congestive heart failure. HISTORY OF ILLNESS AND HOSPITAL COURSE: For complete history of the events leading up to her rehab stay, please see the history and physical dictated by me on 11/21/16. While on the rehab unit, the patient remained medically stable. Her medications were adjusted when her family brought in her home medication list. She was maintained on Lovenox for DVT prophylaxis. Otherwise , she was stable. She was seen by Physical and Occupational Therapy. She made good gains with both disciplines. With Physical Therapy at the time of admission, the patient required contact guard to do transfers. She was able to ambulate 40 feet with contact guard. With Occupational Therapy at the time of admission, the patient required total assistance for lower body dressing, supervision for upper body dressing. She was min assist for bathing and mod assist for toileting, min assist for toilet transfers. By the time of discharge , the patient was independent in transfers, independent ambulating 150 feet with a rolling walker, independent going up and down 5 steps, independent toileting, independent toilet transfers, independent in dressing and independent with bathing. Patient was discharged home 11/28/16. DISCHARGE DIET: Regular. DISCHARGE MEDICATIONS: Included: 1. Coreg 12.5 mg in the morning and 6.25 mg in the evening. 2. Vitamin B12 1000 mg every day. 3. Lovenox 40 mg subcutaneously for 10 days. 4. Cozaar 50 mg twice daily. 5. Percocet 5/325 one to two tablets every 4 hours as needed. 6. Aspirin 81 mg daily. 7. Tylenol 650 mg every 6 hours as needed. SERVICES AFTER DISCHARGE: Through [facility]. She will have home nursing and home physical therapy. Follow up with Dr. Kane Villegas on 12/04/16 for staple removal and followup x-ray. She will also follow up with her primary care doctor, Dr. Antoine Carey. [id number]/[facility] #: [id number] MTDAshwin
== END 2016-11-28 13:30 | disposition home or self-care (01) | DRG 561 ==
LOC: PMRU 12:23
PROVIDERS: ADMIT Physical Medicine & Rehabilitation; ATTEND Physical Medicine & Rehabilitation
PROC: F07Z5ZZ Bed Mobility Treatment (ICD-10-PCS; principal; 2016-11-21)
PROC: F07Z8ZZ Transfer Training Treatment (ICD-10-PCS; 2016-11-21)
PROC: F07Z9ZZ Gait Training/Functional Ambulation Treatment (ICD-10-PCS; 2016-11-21)
PROC: F08Z0ZZ Bathing/Showering Techniques Treatment (ICD-10-PCS; 2016-11-21)
PROC: F08Z1ZZ Dressing Techniques Treatment (ICD-10-PCS; 2016-11-21)
PROC: F08Z3ZZ Feeding/Eating Treatment (ICD-10-PCS; 2016-11-21)
DX: S72.91XD Unspecified fracture of right femur, subsequent encounter for closed fracture with routine healing (principal); I11.0 Hypertensive heart disease with heart failure; I50.9 Heart failure, unspecified; W01.0XXD Fall on same level from slipping, tripping and stumbling without subsequent striking against object, subsequent encounter; E78.5 Hyperlipidemia, unspecified; Z85.038 Personal history of other malignant neoplasm of large intestine; Z79.899 Other long term (current) drug therapy
CPT/HCPCS: 36415; 80053; 85025; A9270-GY; J1650